=== PATIENT | male | born 1970 | race Caucasian/White ===

== ENCOUNTER → 2024-01-03 14:18 | Outpatient (REF) | payer OTHER, SELFPAY ==
[2024-01-06 04:32] LABS: HPV, High Risk Not Detected; HPV, High Risk Source Anal
== END ==
LOC: CLAB 14:18
PROVIDERS: ATTENDING PHYSICIAN Surgery
DX: Z72.52 High risk homosexual behavior (principal)
CPT/HCPCS: 87624; 88112

== ENCOUNTER → 2024-10-17 08:36 | Outpatient (REF) | payer OTHER, SELFPAY | LOC: RAD 08:36 | PROVIDERS: ATTENDING PHYSICIAN Student in an Organized Health Care Education/Training Program | DX: R05.1 Acute cough (principal) | CPT/HCPCS: 71046 ==

== ENCOUNTER → 2024-12-07 06:35 | Outpatient (REF) | payer OTHER, SELFPAY | LOC: HWRAD 06:35 | PROVIDERS: ATTENDING PHYSICIAN Specialist; FAMILY PHYSICIAN Physician Assistant Medical | DX: R79.89 Other specified abnormal findings of blood chemistry (principal) | CPT/HCPCS: 76700 ==

== ENCOUNTER → 2024-12-13 08:00 | Outpatient (REF) | payer OTHER, SELFPAY | LOC: RCS 08:00 | PROVIDERS: ATTENDING PHYSICIAN Internal Medicine Cardiovascular Disease; FAMILY PHYSICIAN Physician Assistant Medical | DX: R06.02 Shortness of breath (principal) | CPT/HCPCS: 93017; 93350 ==

== ENCOUNTER → 2025-02-28 13:14 | Outpatient (REF) | payer OTHER, SELFPAY | LOC: RAD 13:14 | PROVIDERS: ATTENDING PHYSICIAN Physician Assistant Medical | DX: R10.30 Lower abdominal pain, unspecified (principal) | CPT/HCPCS: 74177; Q9967 ==

== ENCOUNTER 2025-06-03 05:05 | Observation (INO) | payer OTHER, SELFPAY ==
[2025-06-02 23:12] VITALS: BP 126/75
[2025-06-03] VITALS (9 sets, daily range): BP systolic 100–163; BP diastolic 57–87; BMI 28.7; BMI 27.7
[2025-06-03 00:42] LABS: INR 1.03; PT 13.8 Sec (11.4-14.6)
[2025-06-03 00:43] LABS: APTT 32.6 Sec (23.4-35.0)
[2025-06-03 00:48] LABS: Hematocrit 38.2 % (39.0-52.0); Hemoglobin 13.7 g/dL (13.0-18.0); Mean Corp Hgb Conc. 35.9 g/dL (33.0-37.0); Mean Corpuscular Volume 89.9 fL (80.0-94.0); Nucleated Red Blood Cells % 0 % (-); Platelet Count 261 10^3/uL (130-400); Red Cell Dist. Width 12.3 % (11.5-14.5)
[2025-06-03 00:49] LABS: ALT (SGPT) 48 U/L (0-50); AST (SGOT) 32 U/L (17-59); Albumin 5.0 g/dl (3.5-5.0); Alkaline Phosphatase 47 U/L (38-126); Blood Urea Nitrogen 20 mg/dl (9-20); Calcium 9.7 mg/dl (8.4-10.2); Carbon Dioxide 18 mmol/L (22-30); Chloride 111 mmol/L (98-107); Estimated Creatinine Clearance 95 ml/min; Glucose 103 mg/dl (70-99); Potassium 4.5 mmol/L (3.5-5.1); Sodium 144 mmol/L (135-145); Total Protein 7.4 g/dl (6.3-8.2); eGFR > 60.00
[2025-06-03 01:00] LABS: Troponin I < 0.012 ng/ml
--- NOTE | 2025-06-03 01:02 | ED.GENMED ---
History of Present Illness
General
Chief Complaint: CVA/TIA Symptoms
Source: patient
Exam Limitations: none
Time Seen by Provider: 06/03/25 00:35
Nursing documentation reviewed up to this point in time: agreed with
History of Present Illness
History of Present Illness:
Patient is a 54-year-old male with past medical history of hypertension hyperlipidemia, that was brought to the ER by his partner. reports they were sitting on the couch patient fell asleep and woke up with confused speech. could
not understand what patient was saying the patient repeated confused conversation 3 times. His speech was clear but his words were not making sense. Patient presents awake alert he does recall stating something but believes at that time he was
making sense. He does complain of left-sided frontal headache. He denies any other upper lower extremity weakness he denies. He denies any associate chest pain shortness of breath.
He reports yesterday he morning, Wednesday morning he got back from an 18-hour flight from [facility].
Patient reports that patient had a history and diagnosis of aphasia in 2021. He was here in the ER at that time and did see neurology and had negative CAT scan was recommended to start aspirin
Past History
Past History
ED Past Medical History: HTN and Hypercholesterolemia
ED Past Surgical History: Other (knee and sinus)
Patient has exhibited threatening behavior?: No
PSI?: No
Social History
Tobacco: Non-smoker
Alcohol: None
Personal:
Living: with family
Employment: Employed
Phy Exam
General Physical Exam
General Presentation: no apparent distress
General age: appears stated age
General Skin: warm and dry
General Habitus: normal
General Mental: alert
General Hydration: appears well hydrated
ENT Exam
ENT Exam: EOMI
Eye Exam
Eye Exam: PERRL and EOMI
Eye Exam General: PERRL: bilateral and EOM intact: bilateral
Pupil Exam: Bilateral: round and reactive
Cardiovascular Exam
Cardiovascular Exam: regular rate/rhythm, no murmur and normal peripheral pulses
Pulmonary Exam
Pulmonary Exam: lungs clear and no respiratory distress
Neurological Exam
Neurological Exam: alert and oriented x3
NIH Stroke Score
Level of Consciousness: 0 - Alert
LOC questions: 0-Answers both correctly
LOC Commands: 0-Performs both correctly
Best Gaze: 0-Normal
Visual Flowers: 0=Normal, no visual loss
Facial palsy: 0=Normal, symmetrical
Motor - Right Arm: 0=No drift 10 seconds
Motor - Left Arm: 0=No drift 10 seconds
Motor - Right Le-No drift 5 seconds
Motor - Left Le-No drift 5 seconds
Limb Ataxia: 0-Absent
Sensation: 0-Normal
Best Language: 0-No aphasia
Dysarthria: 0-Normal
Extinction and Inattention: 0-No abnormality
Total Score:: 0
Musculoskeletal Exam
Musculoskeletal Exam: full ROM
Skin Exam
Skin Exam: normal color and warm/dry
Psychiatric Exam
Psychiatric Exam: normal mood/affect
Course
Orders/Labs/Results
Orders:
Orders
06/02/25 23:18
Electrocardiogram (*1) Urgent
Reason for Study: Other
Other Reason for Exam: Possible Stroke
EKG- Treatment ONCE
06/03/25 00:00
CT Head W/o Iv Contrast Urgent
Reason For Exam: aphasia previous TIA
06/03/25 00:20
Cardiac Monitoring- Treatment ONCE
IV Insert/Care/Rem.- Treatment PRN
Vital Signs As Directed
Frequency: Other
Weight As Directed
Frequency: Once
Comment: ZERO STRETCHER SCALE FOR ACCURATE WEIGHT
O2 Therapy [RESP] Urgent
Titrate/Wean O2 to maintain O2 sat greater than (%): 93
Special Instructions: MAINTAIN CONTINUOUS O2 SATS > OR = 93%
06/03/25 00:23
Alcohol Urgent
Complete Blood Count/With Diff Urgent
Comprehensive Metabolic Panel Urgent
PTT Urgent
Prothrombin Time Urgent
Troponin I Urgent
06/03/25 04:52
Lactate Level [Lactic Acid] Urgent
06/03/25 04:54
Add On- LAB Urgent
Tests Added?: Alcohol
Admit/Transfer Patient As Directed
Co-Sign Provider:
Level of Care: Observation services
Assign to:: Telemetry
Physician / Group: Carlos
Diagnosis: Aphasia
Reason for Telemetry: CVA/TIA
Date to Stop Telemetry: 06/06/25
Time to Stop Telemetry: 11:00
PRN Pain Medication Management As Directed
May give lesser potent ordered pain med per pt: Yes
preference::
Protocol:: Medication orders for pain may be administered in a
manner that supports deferring to patient preference
when the pt is:
- Requesting an ordered lesser potent pain medication.
Least to most potent pain medications are defined
as: acetaminophen < NSAID < tramadol < opioids
(morphine, oxycodone, hydromorphone).
- Requesting a lesser dose of the same medication IF
ORDERED.
- Requesting a less intrusive route of administration
if both routes are prescribed by the provider (PO <
IV).
06/03/25 04:55
Code Status As Directed
Resuscitation Status: Full Code
06/03/25 Breakfast
Regular
At Your Request: Full Participation
Does patient need a safe tray?: No
06/03/25 06:13
Acetaminophen [Tylenol] 650 mg PO Q4HPRN PRN
06/03/25 07:13
0.9% Sodium Chloride 1000 ml [Nss] 1,000 ml IV 100 mls/hr
FOLic ACID [Folvite] 1 mg 0.9% Sodium Chloride 50 ml [Nss] 50 ml IV DAILYPRN
Lorazepam [Ativan] 1 mg PO Q2HPRN PRN
06/03/25 07:13
Case Management Consult Once
Case Management Consult: Other
Comment: Substance abuse counseling
DIETARY IP CONSULT Routine
Reason for Consult: Nutrition support, possible refeeding guidelines
Activity As Directed
Activity Level: Ambulate
With Assistance
EKG with chest pain [ECG as needed] As Directed
ECG as needed for:: Chest Pain
I/O [Intake/ Output] As Directed
Frequency: Per unit guidelines
MSAS SCORE As Directed
MSAS Score 0-4: Repeat MSAS every 2 hours until 0-4 for three consecutive assessments, then every 4 hours x 48
hours.
MSAS Score 5-7: For MILD withdrawl symptoms. Repeat MSAS and RASS every 2 hours
MSAS Score 8-11: For MODERATE withdrawal symptoms. Repeat MSAS and RASS every 1 hour. Consider ICU or IMU
level of care.
MSAS Score > 11: For SEVERE withdrawal symptoms. Repeat MSAS and RASS every 1 hour. Notify provider, consider
ICU level of care.
MSAS Additional Instructions: If no improvement or no decrease in score from severe to moderate within 12
hours, consult psychiatry
MSAS Notify Provider: Notify provider if patient requires more than 10 mg of Lorazepam in eight hour period.
Neurological Checks As Directed
Frequency: q4h
Pneumatic Compression Sleeves As Directed
Type: Knee high
Vital Signs As Directed
Frequency: Per unit guidelines
Oxygen Therapy [O2 Therapy] [RESP] Routine
Titrate/Wean O2 to maintain O2 sat greater than (%): 94
Speech Therapy Eval & Treat Routine
DX Deep Vein Thrombosis Video Routine
06/03/25 07:21
Lorazepam [Ativan] 1 mg PO Q1HPRN PRN
06/03/25 07:22
diazePAM [Valium Injection] 10 mg IV Q1HPRN PRN
06/03/25 08:00
Aspirin Chewable [Low Strength Aspirin] 81 mg PO DAILY
FOLic ACID [Folvite] 1 mg PO DAILY
Labetalol [Trandate] 50 mg PO BID
Lisinopril [Zestril] 20 mg PO BID
Sertraline HCl [Zoloft] 25 mg PO DAILY
Spironolactone [Aldactone] 12.5 mg PO DAILY
Thiamine Injection 200 mg IV Q12
06/03/25 09:12
Glycohemoglobin (HgbA1c) Routine
TSH Reflex To Free T4 Routine
06/03/25 10:52
Urine Drug Abuse Screen Routine
Date Specimen was Collected: 06/03/25
Time Specimen was Collected: 09:55
06/04/25 06:00
Basic Metabolic Panel IN AM
Cardiovascular Evaluation IN AM
Complete Blood Count/No Diff IN AM
06/06/25 08:00
Thiamine HCl [Vitamin B1] 100 mg PO BID
06/06/25 11:00
DC Protocol for Telemetry ONCE
Abnormal Lab Results
06/03/25
00:23
RBC 4.25 L 10^6/uL
(4.70-6.10)
Hct 38.2 L %
(39.0-52.0)
MCH 32.2 H pg
(27.0-31.0)
Abs Immat Gran (auto) 0.1 H 10^3/uL
(0-0.05)
Immature Gran % 0.8 H %
(0-0.5)
Chloride 111 H mmol/L
(98-107)
Carbon Dioxide 18 L mmol/L
(22-30)
Glucose 103 H mg/dl
(70-99)
06/03/25 00:23
06/03/25 00:23
Vital Signs
Initial and Last Documented VS:
Initial Vital Signs
Temp Pulse Resp BP Pulse Ox
98.3 F 79 16 126/75 96
06/02/25 23:12 06/02/25 23:12 06/02/25 23:12 06/02/25 23:12 06/02/25 23:12
Last Documented Vital Signs
Temp Pulse Resp BP Pulse Ox
97.7 F 82 16 143/81 98
06/03/25 15:00 06/03/25 15:00 06/03/25 15:00 06/03/25 15:00 06/03/25 15:00
Associate Professor Computer Science consulted with Physician
Associate Professor Computer Science consulted with physician?: Yes
Name of Physician Consulted: lazarus
MDM/Problems Addressed
Differential Diagnosis Includes:
Not limited TIA
MDM/Problems Addressed:
As documented patient is a 54-year-old male who was brought by for evaluation. Patient had an episode at 0 of confused conversation. reports his eyes were open he was awake alert talking but not making any sense. His speech was
clear. He presented awake alert and oriented to the ER and recalls this but felt he was making sense at the time. He has no neurological deficits. He does have a history of aphasia, TIA episode in 2021 and was discharged on aspirin but never
followed up with neurology had not not had an MRI.
Case reviewed with ED physician will order CAT scan and plan for admission
Chronic conditions affecting care:
Hypertension hyperlipidemia history of TIA
*Radiology
Radiology exam reviewed: radiology read reviewed
*Pulse Oximetry
SaO2: 96
Oxygen Mode of Delivery: Room air
Patient hypoxic: no
*EKG
Interpreted by ED Provider?: Yes
Heart Rate: 68
Rate: normal
Rhythm: sinus
Ischemia: non-specific ST changes
*Critical Care Note
Total Time (30-74mins, 75-104mins- exclusive of procedures): Not Applicable
ED Attending Note
-
Portions of this chart may have been created with voice recognition software.� Occasional wrong word or��sound alike� substitutions may have occurred due to the inherent limitations of voice recognition software.
Discharge Plan
Departure
Patient Disposition: Admit
Date of Disposition: 06/03/25
Time of Disposition: 03:52
Admit to: Med/Surg
Admit to doctor: hospitalist
Presentation/result/management discussed w/ accepting MD/DO: Hospitalist
Patient with high blood pressure during this ER visit?: No
Condition: Fair
Covid-19: Not Applicable
Discharge Problem:
Possible TIA
Interventions
Interventions:
*Risk Screen - Suicide Last Done: 06/02/25 23:12
*General Assessment Last Done: 06/03/25 00:24
*Neglect/Abuse Screening Last Done: 06/02/25 23:12
*ED- Fall Risk Assessment Last Done: 06/03/25 07:21
*ED COVID-19 Vaccine History Last Done: 06/03/25 00:24
*Nursing Disposition Last Done: 06/03/25 07:21
ED- Cardiac Assessment Last Done: 06/03/25 00:28
ED- Neurological Assessment Last Done: 06/03/25 00:28
ED- Pulmonary Assessment Last Done: 06/03/25 00:28
ED Swallowing Screen Last Done: 06/03/25 01:30
Discharge Date and Time
Discharge Date/Time: 06/03/25 07:22
--- NOTE | 2025-06-03 04:56 | HPS.HSE ---
Family Physician
-
Family Physician: Camryn Barrientos
Chief Complaint
-
Aphasia
History of Present Illness
Patient is a 54y M with PMH significant for hypertension and suspected prior TIA who presents to ED for evaluation of aphasia. Patient states that he was feeling well this evening. He fell asleep early in the evening and then woke around 9:30 -
10 PM. He states that she started to speak with his , but he was apparently making no sense. He was speaking about mushrooms or bugs / beetles or something similar and seemed confused according to his . This lasted for about 5-10
minutes and then improved. Patient then presented to the ED for further evaluation.
He developed a L sided headache after arrival to the ED - this is now somewhat improved.
He denies any vision changes, numbness / tingling, focal weakness or ataxia.
Patient had a similar episode in 2021. He was seen in the ED by Neurology at that time and diagnosed with suspected TIA. He was markedly hypertensive during that visit (is not today).
Medical History
Past Medical History
Past Medical History: Reports Other
Additional Past Medical History:
Hypertension
TIA
IBS
Anxiety
Past Surgical History: Reports Other
Additional Past Surgical History:
T&A
Sinus Surgery
Bilateral Elbow Surgery
Carpal Tunnel
Social History
Tobacco: Non-smoker
Alcohol: Daily (Drinks most days of the week. Averages 6-8 drinks per week.)
Drug: None
Personal:
Family History
Family History: Other (Father: Parkinson's, TIAs Mother: Lung Cancer)
Allergies / Home Medications
Allergies reflects when Allergies were last updated in [employer].
Home Medications with original date entered in [employer]
Allergy/Medication List:
Allergies
Allergy/AdvReac Type Severity Reaction Status Date / Time
Sulfa (Sulfonamide Allergy Hives Verified 06/02/25 23:17
Antibiotics)
Home Medications
aspirin 81 mg tablet 81 mg PO DAILY Blood Clot Prevention/Tx 03/15/23
lisinopril 20 mg tablet 20 mg PO BID Blood Pressure 03/15/23
spironolactone 25 mg tablet (Aldactone) 12.5 mg PO DAILY Fluid Retention/Swelling 03/15/23
evolocumab 140 mg/mL subcutaneous pen injector (Repatha SureClick) 140 mg SC Q2W 06/03/25
labetalol 100 mg tablet 50 mg PO BID 06/03/25
sertraline 25 mg tablet 25 mg PO DAILY 06/03/25
Review of Systems
-
History Source: Patient
A 12 point ROS was completed and negative except as noted: Yes
Constitutional: Denies Fever or Chills
Respiratory: Denies Cough or Trouble Breathing
Cardiac: Denies Chest Pain or Palpitations
Abdomen/GI: Denies Abdominal Pain, Nausea, Vomiting or Diarrhea
: Denies Dysuria or Frequency
Musculoskeletal: Denies Joint Pain or Edema
Neurological: Reports Headache and Other (Speech issues.); Denies Dizzy, Weakness or Numbness
Physical Exam
Vital Signs
Vital Signs
Temp Pulse Resp BP Pulse Ox
98.3 F 77 14 117/72 97
06/02/25 23:12 06/03/25 03:30 06/03/25 03:30 06/03/25 01:00 06/03/25 03:30
Physical Exam
General: Other (54y M in no acute distress.)
HEENT: Moist mucous membranes and PERRLA
Respiratory: Clear; No Wheezes, Rales or Rhonchi
Cardiac: S1/S2 and Regular Rhythm; No Murmur
GI: Soft, Non Tender, Non Distended and Normal Bowel Sounds
Musculoskeletal: No Clubbing, No Cyanosis and No Edema
Neuro: AO x 3 and Nonfocal/grossly intact
Laboratory Results
-
06/03/25 00:23
06/03/25 00:23
Laboratory Results
PT 13.8 Sec (11.4-14.6) 06/03/25:
INR 1.03 06/03/25:
APTT 32.6 Sec (23.4-35.0) 06/03/25:
Total Bilirubin 0.6 mg/dl (0.2-1.3) 06/03/25:
AST 32 U/L (17-59) 06/03/25:
ALT 48 U/L (0-50) 06/03/25:
Alkaline Phosphatase 47 U/L (38-126) 06/03/25:
Troponin I < 0.012 ng/ml 06/03/25:
Impression/Plan
-
A/P: Patient is a 54y M with PMH significant for hypertension and prior TIA who presents to ED for evaluation of transient speech abnormality.
Aphasia
- Observe overnight for further evaluation.
- CT head unremarkable in the ED. Not hypertensive (BP running low which is unusual for him).
- Follow for new / recurrent symptoms.
- MRI in AM.
- Continue ASA daily.
Anion Gap Metabolic Acidosis
- Mild elevation in AG (15). Odor of ketones in the room.
- Check serum ketones, EtOH.
- IVFs and follow labs for changes.
Hypertension
- BP not elevated at present.
- Continue usual medications with holding parameters.
Alcohol Use Disorder
- Patient reports alcohol intake most days but not every day.
- Monitor MSAS and treat with BZDs if needed for any withdrawal symptoms.
DVT Prophylaxis: SCDs
Code Status: Full
[2025-06-03] MEDS: TYLENOL 650 MG PO (06:22)
[2025-06-03] MEDS: NSS 1000 IV (08:38)
[2025-06-03] MEDS: THIAMINE INJECTION 200 MG IV ×2 (08:44→20:32)
[2025-06-03] MEDS: FOLVITE 1 MG PO (08:46)
[2025-06-03] MEDS: TRANDATE 50 MG PO ×2 (08:46→20:33)
[2025-06-03] MEDS: LOW STRENGTH ASPIRIN 81 MG PO (08:46)
[2025-06-03] MEDS: ZOLOFT 25 MG PO (08:46)
[2025-06-03] MEDS: ALDACTONE 12.5 MG PO (08:46)
[2025-06-03] MEDS: ZESTRIL 20 MG PO ×2 (08:46→20:31)
[2025-06-03 13:22] LABS: Glycohemoglobin (HgbA1c) 5.4 % (4.0-5.6)
--- NOTE | 2025-06-03 13:32 | CM ---
Initial assessment completed with patient with in room. Patient lives with his in a 1 story plus basement home with 2 steps to enter. [employer] patient was independent in ADL's and ambulation, drives. No DME or in-home services. Patient
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 No VA benefits. No psychiatric hospitalizations. PA is Camryn Barrientos with [facility]. Pharmacy is [facility], [facility], . Discharge POC: Anticipate home with no needs, Obs form
completed.
--- NOTE | 2025-06-03 15:14 | W.PN.HOSP.TC ---
Today's Communication/Plan
-
Neurology evaluation
Repeat BMP
Possible discharge today
Assessment / Plan
Assessment / Plan
54-year-old man with aphasia/dysphagia
Head CT-CT evidence-no acute intracranial hemorrhage. Low-lying cerebellar tonsils.
MRI-no evidence of acute infarct or intracranial hemorrhage. Low-lying cerebellar tonsils. Severe right maxillary sinusitis.
EKG-sinus rhythm. Nonspecific ST-T changes
Patient is awake and alert oriented
Cardiovascular system S1-S2 appreciated
Chest clear to auscultation
Abdomen soft nontender
Neuroexam is nonfocal
No tenderness in the sinuses
# Aphasia/dysphagia
Patient had alcohol from 4 PM to 8 PM and then this symptoms happened at around 10 PM.
MRI negative for strokes
Symptoms are unlikely secondary to CVA but secondary to alcohol intoxication
Alcohol level was 192 4 hours after his last reported drink
Continue aspirin which he was on prior to coming in
Neurology evaluation requested per patient/ family request
# Severe sinusitis seen on imaging-patient does not have any clinical symptoms therefore no treatment. Advised patient to report to his PCP if he does develop any symptoms and the near future. He does not have any symptoms of bacterial sinusitis
at this point therefore no antibiotics.
# Anion gap metabolic acidosis likely secondary to alcohol, repeat
# Hypertension-continue labetalol, lisinopril, Aldactone
# Hyperlipidemia-on Repatha
# Alcohol use disorder-at least 4 days a week
Patient needs to cut back on alcohol was discussed with him
Continue MSAS, with benzo for withdrawal symptoms and thiamine
# Diverticulosis
# Fatty liver
# DVT prophylaxis-SCDs
# Full code
Discussed with patient's at bedside
D/W RN
Discussed with patient regarding cutting back on alcohol. I also reviewed that he was here with gastritis in the past and could have been also secondary to alcohol use. I do not think patient realizes the depth of his situation and the amount of
alcohol he he uses.
Part of this note was created using voice recognition system. Occasional wrong word or��sound alike� substitutions may have inadvertently occurred due to the inherent limitations of voice recognition software. If noted kindly bring it to my
attention for correction.
Anticipated Discharge: Today
Subjective/Interval History
-
Date of Service: June 03, 2025
Objective Data
-
Labs:
Laboratory Results
06/03/25
14:56
Sodium Pending
Potassium Pending
Chloride Pending
Carbon Dioxide Pending
BUN Pending
Creatinine Pending
Glucose Pending
Calcium Pending
Vital Signs:
Vital Signs
Temp Pulse Resp BP Pulse Ox
98.6 F 80 12 132/73 94
06/03/25 11:00 06/03/25 11:00 06/03/25 11:00 06/03/25 11:00 06/03/25 11:00
[2025-06-03 15:27] LABS: Blood Urea Nitrogen 19 mg/dl (9-20); Calcium 9.8 mg/dl (8.4-10.2); Carbon Dioxide 25 mmol/L (22-30); Chloride 107 mmol/L (98-107); Estimated Creatinine Clearance 107 ml/min; Glucose 116 mg/dl (70-99); Potassium 4.5 mmol/L (3.5-5.1); Sodium 138 mmol/L (135-145); eGFR > 60.00
[2025-06-03 16:17] LABS: Blood Urea Nitrogen 18 mg/dl (9-20); Calcium 9.8 mg/dl (8.4-10.2); Carbon Dioxide 24 mmol/L (22-30); Chloride 107 mmol/L (98-107); Estimated Creatinine Clearance 107 ml/min; Glucose 99 mg/dl (70-99); Potassium 4.4 mmol/L (3.5-5.1); Sodium 139 mmol/L (135-145); eGFR > 60.00
[2025-06-03] MEDS: PLAVIX 300 MG PO (16:20)
[2025-06-03] MEDS: PROTONIX 40 MG PO (16:21)
--- NOTE | 2025-06-03 16:49 | CON.NEURO ---
Neuro Assessment/Plan
Assessment
MRI brain imgs rev'd, normal, no stroke
ETOH 192
54 yr old man with transient aphasia, exam consistent with brainstem stroke/TIA, and as there is no language involvement with brainstem, I suspect his transient aphasia to be embolic TIA, with alcohol putting him at risk for going into afib.
continue ASA 81, I Loaded Plavix 300 + 21 days of Plavix,
I ordered ECHO and carotid ultrasound
He is on repatha for Lipids managed by Dr Roy, whom I'm consulting for embolic workup as patient agreeable to VENANCIO
discussed with patient and all questions answered.
Consultation
Order
Date of Consultation: 06/03/25
Requesting Provider: Santo
Reason for Consult: aphasia
Subjective/Objective
Subjective Data
Date of Service: June 03, 2025
Patient is a 54y M with PMH significant for hypertension and suspected prior TIA who presents to ED for evaluation of aphasia. Patient states that he was feeling well this evening. He fell asleep early in the evening and then woke around 9:30 -
10 PM. He states that she started to speak with his , but he was apparently making no sense. He was speaking about mushrooms or bugs / beetles or something similar and seemed confused according to his . This lasted for about 5-10
minutes and then improved. Patient then presented to the ED for further evaluation.
He developed a L sided headache after arrival to the ED - this is now somewhat improved.
He denies any vision changes, numbness / tingling, focal weakness or ataxia.
Patient had a similar episode in 2021. He was seen in the ED by Neurology at that time and diagnosed with suspected TIA. He was markedly hypertensive during that visit (is not today).
patient has vague recollection of events, and not sure what he was trying to say. in ED ETOH 192. patient admits to drinking 1-2 nights a week.
Objective Data
Vital Signs
Temp Pulse Resp BP Pulse Ox
36.5 C 82 16 143/81 98
06/03/25 15:00 06/03/25 15:00 06/03/25 15:00 06/03/25 15:00 06/03/25 15:00
Lab Results
06/03/25 00:23
06/03/25 15:53
PT 13.8 Sec (11.4-14.6) 06/03/25 00:23
INR 1.03 06/03/25 00:23
APTT 32.6 Sec (23.4-35.0) 06/03/25 00:23
Sodium 139 mmol/L (135-145) 06/03/25 15:53
Potassium 4.4 mmol/L (3.5-5.1) 06/03/25 15:53
BUN 18 mg/dl (9-20) 06/03/25 15:53
Glucose 99 mg/dl (70-99) 06/03/25 15:53
Calcium 9.8 mg/dl (8.4-10.2) 06/03/25 15:53
Ur Buprenorphine Negative (Negative) 06/03/25 10:52
Patient Allergies
Sulfa (Sulfonamide Antibiotics) Allergy (Verified 06/02/25 23:17)
Hives
Physical Exam
-
AAOx3, speech clear, language intact
VFF, EOMI, Right nasolabial flattening
LUE/LE 5-/5, RUE/LE full strength, left pronator drift
sensation intact to touch/pin, with mild left sided vibratory loss.
Finger to nose was normal
Medications
-
Active Medications
Generic Name Dose Route Start Last Admin
Trade Name Freq PRN Reason Stop Dose Admin
Acetaminophen 650 mg 06/03/25 06:13 06/03/25 06:22
Acetaminophen 325 Mg Tablet PO 07/01/25 06:12 650 mg
Q4HPRN PRN Administration
Mild Pain / Temp > 101
Aspirin 81 mg 06/03/25 08:00 06/03/25 08:46
Aspirin 81 Mg Chewable Tablet PO 07/01/25 07:59 81 mg
DAILY YANIV Administration
Clopidogrel Bisulfate 75 mg 06/04/25 08:00
Clopidogrel 75 Mg Tablet PO 06/24/25 08:01
DAILY YANIV
Diazepam 10 mg 06/03/25 07:22
Diazepam 10 Mg/2 Ml Inj IV 07/01/25 07:21
Q1HPRN PRN
MSAS > 11
Folic Acid 1 mg 06/03/25 08:00 06/03/25 08:46
Folic Acid 1 Mg Tablet PO 07/01/25 07:59 1 mg
DAILY YANIV Administration
Folic Acid 1 mg/ Sodium 50.2 mls @ 200.8 mls/hr 06/03/25 07:13
Chloride IV 07/01/25 07:12
DAILYPRN PRN
if NPO
Labetalol HCl 50 mg 06/03/25 08:00 06/03/25 08:46
Labetalol 100 Mg Tablet PO 07/01/25 07:59 50 mg
BID YANIV Administration
Lisinopril 20 mg 06/03/25 08:00 06/03/25 08:46
Lisinopril 20 Mg Tablet PO 07/01/25 07:59 20 mg
BID YANIV Administration
Lorazepam 1 mg 06/03/25 07:13
Lorazepam 1 Mg Tablet PO 07/01/25 07:12
Q2HPRN PRN
MSAS 5-7
Lorazepam 1 mg 06/03/25 07:21
Lorazepam 1 Mg Tablet PO 07/01/25 07:20
Q1HPRN PRN
MSAS 8-11
Pantoprazole Sodium 40 mg 06/04/25 08:00
Pantoprazole 40 Mg Delayed Release Tablet PO 07/02/25 07:59
DAILY YANIV
Sertraline HCl 25 mg 06/03/25 08:00 06/03/25 08:46
Sertraline 25 Mg Tablet PO 07/01/25 07:59 25 mg
DAILY YANIV Administration
Sodium Chloride 0 flush 06/03/25 08:00
Sodium Chloride 0.9% (Flush) Syringe IV 07/01/25 07:59
PER PROTOCOL YANIV
Spironolactone 12.5 mg 06/03/25 08:00 06/03/25 08:46
Spironolactone 25 Mg Tablet PO 07/01/25 07:59 12.5 mg
DAILY YANIV Administration
Thiamine HCl 200 mg 06/03/25 08:00 06/03/25 08:44
Thiamine (100 Mg/Ml) 2 Ml Vial IV 06/05/25 20:01 200 mg
Q12 YANIV Administration
Thiamine HCl 100 mg 06/06/25 08:00
Thiamine 100 Mg Tablet PO 07/04/25 07:59
BID YANIV
Home Medications
�Medication �Instructions �Recorded
aspirin 81 mg tablet 81 mg PO DAILY Blood Clot 03/15/23
Prevention/Tx
lisinopril 20 mg tablet 20 mg PO BID Blood Pressure 03/15/23
spironolactone 25 mg tablet 12.5 mg PO DAILY Fluid 03/15/23
(Aldactone) Retention/Swelling
evolocumab 140 mg/mL subcutaneous 140 mg SC Q2W High Cholesterol 06/03/25
pen injector (Repatha SureClick)
labetalol 100 mg tablet 50 mg PO BID Blood Pressure 06/03/25
sertraline 25 mg tablet 25 mg PO DAILY Depression 06/03/25
thiamine mononitrate (vit B1) 100 100 mg PO DAILY #30 tabs 06/03/25
mg tablet
[2025-06-03 21:39] LABS: Blood Urea Nitrogen 17 mg/dl (9-20); Calcium 9.8 mg/dl (8.4-10.2); Carbon Dioxide 24 mmol/L (22-30); Chloride 107 mmol/L (98-107); Estimated Creatinine Clearance 122 ml/min; Glucose 132 mg/dl (70-99); Potassium 3.9 mmol/L (3.5-5.1); Sodium 137 mmol/L (135-145); eGFR > 60.00
[2025-06-03 21:40] LABS: Magnesium 1.9 mg/dl (1.6-2.3)
--- NOTE | 2025-06-04 03:41 | PTCARENOTE ---
Pt reported c/o 'numbness' to L 4th and 5th fingers. Denied pain. NIH assessment of 1 due to the decreased sensation. TT to covering [employer] seen. Blood work drawn as ordered. No change to plan of care reported. No s/s of distress reported. Will continue
to monitor.
[2025-06-04 03:59] VITALS: BP 119/78
[2025-06-04 07:32] LABS: Hematocrit 39.4 % (39.0-52.0); Hemoglobin 13.8 g/dL (13.0-18.0); Mean Corp Hgb Conc. 35.0 g/dL (33.0-37.0); Mean Corpuscular Volume 90.4 fL (80.0-94.0); Platelet Count 247 10^3/uL (130-400); Red Cell Dist. Width 12.4 % (11.5-14.5)
[2025-06-04 07:35] VITALS: BP 126/76
[2025-06-04 08:05] LABS: Blood Urea Nitrogen 14 mg/dl (9-20); Calcium 9.5 mg/dl (8.4-10.2); Carbon Dioxide 27 mmol/L (22-30); Chloride 106 mmol/L (98-107); Estimated Creatinine Clearance 95 ml/min; Glucose 93 mg/dl (70-99); HDL Cholesterol 65 mg/dl; LDL Cholesterol, Calculated 44 mg/dl; Potassium 4.4 mmol/L (3.5-5.1); Sodium 141 mmol/L (135-145); Very Low Density Lipoprotein 37 mg/dl (0-30); eGFR > 60.00
[2025-06-04] MEDS: ALDACTONE 12.5 MG PO (08:50)
[2025-06-04] MEDS: PLAVIX 75 MG PO (08:52)
[2025-06-04] MEDS: LOW STRENGTH ASPIRIN 81 MG PO (08:52)
[2025-06-04] MEDS: FOLVITE 1 MG PO (08:52)
[2025-06-04] MEDS: ZESTRIL 20 MG PO ×2 (08:52→20:53)
[2025-06-04] MEDS: ZOLOFT 25 MG PO (08:53)
[2025-06-04] MEDS: PROTONIX 40 MG PO (08:53)
[2025-06-04] MEDS: TRANDATE 50 MG PO ×2 (08:53→20:52)
[2025-06-04] MEDS: THIAMINE INJECTION 200 MG IV ×2 (08:54→20:53)
[2025-06-04] MEDS: MILK OF MAGNESIA 30 ML PO (09:53)
[2025-06-04] MEDS: AUGMENTIN 875 MG/125 MG 1 TABLET PO ×2 (09:53→20:51)
[2025-06-04] MEDS: SENOKOT 17.2 MG PO ×2 (09:54→20:51)
[2025-06-04] MEDS: ZYRTEC 10 MG PO (09:54)
--- NOTE | 2025-06-04 10:31 | W.PN.HOSP.TC ---
Today's Communication/Plan
-
Working up etiology of possible stroke with carotid ultrasound and VENANCIO per neurology. Pending carotid ultrasound read. VENANCIO scheduled for tomorrow 06/05/2025. N.p.o. at midnight.
Will receive an implanted Linq monitor per cardiology.
Assessment / Plan
Assessment / Plan
54-year-old man with a PMH notable for HTN and suspected to prior TIA, who presented with aphasia/dysphagia for few minutes after drinking alcohol.
Head CT-CT evidence-no acute intracranial hemorrhage. Low-lying cerebellar tonsils.
MRI-no evidence of acute infarct or intracranial hemorrhage. Low-lying cerebellar tonsils. Severe right maxillary sinusitis.
Transesophageal echo scheduled for tomorrow. N.p.o. at midnight.
Will receive an implanted Linq monitor per cardiology.
# Aphasia/dysphagia
Patient had alcohol from 4 PM to 8 PM and then this symptoms happened at around 10 PM.
MRI negative for strokes
Symptoms are unlikely secondary to CVA. More likely secondary to alcohol intoxication
Alcohol level was 192 4 hours after his last reported drink
Continue aspirin which he was on prior to coming in
TTE: Normal LV size and function. LVEF 56% by visual estimate. Mild LVH. Normal diastolic function.
Carotid ultrasound and VENANCIO per neurology. Pending carotid ultrasound read. VENANCIO scheduled for tomorrow 06/05/2025
# Severe sinusitis seen on imaging-patient does not have any clinical symptoms therefore no treatment. Advised patient to report to his PCP if he does develop any symptoms and the near future. He does not have any symptoms of bacterial sinusitis
at this point therefore no antibiotics.
# Anion gap metabolic acidosis likely secondary to alcohol, repeat
# Hypertension-continue labetalol, lisinopril, Aldactone
# Hyperlipidemia-on Repatha
# Alcohol use disorder-at least 4 days a week
Patient needs to cut back on alcohol was discussed with him
Continue MSAS, with benzo for withdrawal symptoms and thiamine
# Diverticulosis
# Fatty liver
# DVT prophylaxis-SCDs
# Full code
Discussed with patient's at bedside
D/W RN
Discussed with patient regarding cutting back on alcohol. I also reviewed that he was here with gastritis in the past and could have been also secondary to alcohol use. I do not think patient realizes the depth of his situation and the amount of
alcohol he he uses.
Part of this note was created using voice recognition system. Occasional wrong word or��sound alike� substitutions may have inadvertently occurred due to the inherent limitations of voice recognition software. If noted kindly bring it to my
attention for correction.
Anticipated Discharge: Within 24 hours
Subjective/Interval History
-
Date of Service: June 04, 2025
Right 4th and 5th digit numbness overnight that resolved. CMP was ordered, which was normal.
In no acute distress. Reports postnasal drip. Will give amoxicillin and cetirizine
Objective Data
-
Labs:
Laboratory Results
06/04/25
06:12
WBC 7.8
Hgb 13.8
Hct 39.4
Plt Count 247
Sodium 141
Potassium 4.4
Chloride 106
Carbon Dioxide 27
BUN 14
Creatinine 0.9
Glucose 93
Calcium 9.5
Vital Signs:
Vital Signs
Temp Pulse Resp BP Pulse Ox
98.4 F 81 16 148/84 100
06/04/25 07:35 06/04/25 08:50 06/04/25 07:35 06/04/25 08:50 06/04/25 09:00
I&O
06/03/25 06/04/25 06/05/25
06:59 06:59 06:59
Intake Total 780 / 780
Output Total 200 / 200
Balance 580 / 580
Review of Systems
-
History Source: Patient
Constitutional: Reports No Symptoms
EENT: Reports No Symptoms Reported
Respiratory: Reports No Symptoms
Cardiac: Reports No Symptoms
Abdomen/GI: Reports No Symptoms
Neuro: Reports No Symptoms
Physical Exam
-
General: Well Developed, Well Nourished, No Apparent Distress and Comfortable
HEENT: Normocephalic, Atraumatic and Moist Mucous Membranes
Respiratory: Clear to Auscultation
Cardiac: Regular Rhythm and S1/S2
GI: Soft, Nontender, Nondistended and Normal Bowel Sounds
Neuro: Awake, Alert and Oriented
--- NOTE | 2025-06-04 11:11 | CON.CAR ---
Addendum entered and electronically signed by Leta Murillo MD 06/04/25 12:39:
I personally performed a cardiology consultation and physical exam of the patient and discussed management with the resident. I reviewed the resident's note and agree with the documented findings and plan of care HPI/CC.
I personally with the resident at the bedside performed a history and physical on the patient. Myself, the resident and the patient discussed history and management decisions. We discussed the patient's recurrent TIA and pending carotid ultrasound
further cardiac testing.
Exam: Well-appearing. Normal rate and rhythm. No murmurs noted. Lungs clear. Extremities without edema.
Possible recurrent TIA. Appreciate neurology consult.
Await carotid ultrasound if negative proceed with further cardiac assessment
This would include an implantable Linq monitor and transesophageal echocardiogram. Risks and benefits of testing/monitoring discussed with patient and he is agreeable to proceed.
Lipids are at goal. Continue current treatment
Blood pressure stable. Continue current treatment.
Labs and telemetry independently reviewed by me and stable.
Original Note:
Consultation
Consultation Request
Date/Time Consultation Requested: 06/03/25 15:59
Date/Time Consultation Performed: 06/04/25 09:30
Requesting Provider: Rosales Vazquez MD
Performing Provider: Yony Mon DO (Resident); Leta Murillo MD
Reason for Consultation: Recurrent TIA
Medical History
-
Chief Complaint: Aphasia
History of Present Illness:
Tyler Easley is a 54M with a PMhx of HTN, HLD, EtOH use disorder, distant hx of panic attacks, family history of CVA/TIA and previous TIA in 2021 with a negative work up who presented to the emergency department with aphasia.
The patient endorses that 2 nights ago, he was spending the night with his partner listening to music and drinking. He was well and in his usual state of health and fell asleep on the couch. He does not know how long he was asleep for, but when he
woke up from the nap, he reports that his felt that he was not making sense. Symptoms of aphasia were described as being able to use normal words, but content and syntax were off. Patient endorses the episode lasted approximately 10 minutes
and he came to the ED immediately after.
Patient endorses one perior episode in 2021 which prompted an ED visit as well, but imaging was negative. Patient presented at that time with elevated BP and was discharged on ASA and Labetalol.
Patient also endorses having recently been on an 18 hour direct flight from [facility] 3 days ago, but notes sitting in business class with a lot of room, and getting up to walk around during the flight.
States that he is unsure of history of palpitations and would occasionally experience short moments of funny heart beats since his 20s, but they would abort quickly, and he was never worked up for it in the past as it was not a concern. Other chavez
denies any chest pains, shortness of breath, dyspnea on exertion or dizziness/pre-syncope. Denies a history of dysphagia, odynophagia, hematemesis, hemoptysis, esophageal masses or lesions, or severe reflux.
Prior Studies
ECG 12/05: NSR
TTE 2021: mild MR, otherwise unrmarkable
24 hour Holter: per patient, record not found, date unknown, negative.
Stress Echo 11/30/2024: 17 mets without ischemia
ED COURSE
EKG NSR, EtOH 0.19, AGMA (resolved)
CT Head w/o IV: no acute, subacute, or chronic transcortical infarct, no atherosclerotic plaque in the intracranial internal carotids or vertebral arteries.
Hospital Course
Brain MRI: no acute, subacute, or chronic transcortical infarct, no vasogenic edema, low lying cerebellar tonsils.
No repeat events.
Transthoracic ECHO: mild LVH, no change from 2021, EF 56%, otherwise unremarkable.
US cerebrovascular pending.
Past Medical History
Past Medical History: HTN, Hypercholesterolemia and Other (distant hx of panic attacks, EtOH use, one episode of TIA in 2021)
Past Surgical History: Other (sinus surgery, bilateral elbow, carpal tunnel)
Social History
Tobacco: Non-Smoker
Alcohol: Daily (drinks most days of week, 8-10 drinks per week. )
Drug: None
Personal:
Living: With Family
Family History
Family History: Other (Father: hx of Parkinson's dz, TIA, CVA in 50s. )
Allergies / Home Medications
Allergy/AdvReac Type Severity Reaction Status Date / Time
Sulfa (Sulfonamide Allergy Hives Verified 06/02/25 23:17
Antibiotics)
�Medication �Instructions �Recorded �Confirmed �Type
aspirin 81 mg tablet 81 mg PO DAILY Blood Clot 03/15/23 06/03/25 History
Prevention/Tx
lisinopril 20 mg tablet 20 mg PO BID Blood Pressure 03/15/23 06/03/25 History
spironolactone 25 mg tablet 12.5 mg PO DAILY Fluid 03/15/23 06/03/25 History
(Aldactone) Retention/Swelling
evolocumab 140 mg/mL subcutaneous 140 mg SC Q2W High Cholesterol 06/03/25 06/03/25 History
pen injector (Repatha SureClick)
labetalol 100 mg tablet 50 mg PO BID Blood Pressure 06/03/25 06/03/25 History
sertraline 25 mg tablet 25 mg PO DAILY Depression 06/03/25 06/03/25 History
thiamine mononitrate (vit B1) 100 100 mg PO DAILY #30 tabs 06/03/25 Rx
mg tablet
Review of Systems
-
History Source: Patient
All other systems: Negative unless noted
Physical Exam
Vital Signs
Temp Pulse Resp BP Pulse Ox
98.4 F 81 16 148/84 100
06/04/25 07:35 06/04/25 08:50 06/04/25 07:35 06/04/25 08:50 06/04/25 09:00
Lab Results
06/04/25 06:12
06/04/25 06:12
Troponin I < 0.012 ng/ml 06/03/25 00:23
Physical Exam
General: Well Developed, Well Nourished, No Apparent Distress and Comfortable
HEENT: Normocephalic and Atraumatic
Respiratory: Clear and Non Labored Respirations; Negative Wheezes, Crackles or Rhonchi
Cardiac: S1/S2, Regular Rhythm and Other (no carotid bruits bilaterally, no abdominal bruits); Negative Murmur, Rub, Peripheral Edema or Calf Tenderness
Skin: Warm
Neuro: Awake and Alert
Psych: Calm
Impression / Plan
-
Tyler Easley is a 54M with a PMhx of HTN, HLD, EtOH use disorder, distant hx of panic attacks, family history of CVA/TIA and previous TIA in 2021 with a negative work up who presented to the emergency department with aphasia. Radiographic stroke
workup has thus far been negative for acute or chronic cerebrovascular ischemia but in the setting of this being a second episode in 3 years, evaluation for an embolic source would be prudent. We will continue to follow. Benefits of transesophageal
echo with bubble study and LINQ device was discussed with the patient and he is in agreement.
Plan
- Follow up US Cerebrovascular results
- VENANCIO with agitated saline study in AM
- LINQ device implantation likely tomorrow as well
- Continue to discuss cutting down on EtOH
- No record of HbA1c, order today
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
Data Reviewed
-
EKG: Tracing Personally Visualized and interpreted and Discussed with Patient
CT Scan: Report Reviewed by me and Discussed with Patient
MRI: Report Reviewed by me and Discussed with Patient
Medical Tests (Nuc Med, Echo etc): Image Personally Visualized and interpreted and Discussed with Patient
Labs: Labs Reviewed by me and Discussed with Patient
Old Records: Reviewed
Total Time Spent with Patient (in minutes): 40
[2025-06-04 11:40] VITALS: BP 128/78
--- NOTE | 2025-06-04 15:05 | W.PN.UPDATE ---
Update Note
Progress Note Update
54-year-old man with aphasia/dysphagia
Head CT-CT evidence-no acute intracranial hemorrhage. Low-lying cerebellar tonsils.
MRI-no evidence of acute infarct or intracranial hemorrhage. Low-lying cerebellar tonsils. Severe right maxillary sinusitis.
EKG-sinus rhythm. Nonspecific ST-T changes
Patient is awake and alert oriented
Cardiovascular system S1-S2 appreciated
Chest clear to auscultation
Abdomen soft nontender
I could not elicit a facial droop, normal motor exam, sensory exam
No tenderness in the sinuses
# Aphasia/dysphagia
Patient had alcohol from 4 PM to 8 PM and then this symptoms happened at around 10 PM.
MRI negative for strokes
Neurology evaluation noted. Feels that this could have been a stroke which is not seen on MRI, he is at increased risk given alcohol use.
Alcohol level was 192 ,4 hours after his last reported drink
Continue aspirin which he was on prior to coming in. Plavix added
Telemetry without any arrhythmias
For VENANCIO and also loop monitor tomorrow
# Severe sinusitis seen on imaging-patient does not have any clinical symptoms therefore no treatment. Advised patient to report to his PCP if he does develop any symptoms and the near future.
Patient reported symptoms of sinusitis this morning including pain and discharge therefore started on antibiotics.
# Anion gap metabolic acidosis likely secondary to alcohol, repeat better
# Hypertension-continue labetalol, lisinopril, Aldactone
# Hyperlipidemia-on Repatha
# Alcohol use disorder-at least 4 days a week
Patient needs to cut back on alcohol was discussed with him
Continue MSAS, with benzo for withdrawal symptoms and thiamine
# Diverticulosis
# Fatty liver
# DVT prophylaxis-SCDs
# Full code
D/W RN
Part of this note was created using voice recognition system. Occasional wrong word or��sound alike� substitutions may have inadvertently occurred due to the inherent limitations of voice recognition software. If noted kindly bring it to my
attention for correction.
[2025-06-04 15:52] VITALS: BP 124/76
--- NOTE | 2025-06-04 16:35 | CM ---
Cardiology involved
Pt remains observation.
Offered VN he declined need.
His Rory will drive him home at discharge
PLAN Home no needs
[2025-06-04 19:41] VITALS: BP 113/73
[2025-06-04 23:50] VITALS: BP 114/61
[2025-06-05 03:49] VITALS: BP 116/54
[2025-06-05 07:00] VITALS: BP 133/76
[2025-06-05 07:53] LABS: Hematocrit 40.2 % (39.0-52.0); Hemoglobin 14.0 g/dL (13.0-18.0); Mean Corp Hgb Conc. 34.8 g/dL (33.0-37.0); Mean Corpuscular Volume 91.0 fL (80.0-94.0); Platelet Count 232 10^3/uL (130-400); Red Cell Dist. Width 12.6 % (11.5-14.5)
[2025-06-05] MEDS: ZESTRIL 20 MG PO (08:17)
[2025-06-05] MEDS: ZYRTEC 10 MG PO (08:18)
[2025-06-05] MEDS: SENOKOT 17.2 MG PO (08:18)
[2025-06-05] MEDS: TRANDATE 50 MG PO (08:18)
[2025-06-05] MEDS: LOW STRENGTH ASPIRIN 81 MG PO (08:18)
[2025-06-05] MEDS: PLAVIX 75 MG PO (08:18)
[2025-06-05] MEDS: ALDACTONE 12.5 MG PO (08:18)
[2025-06-05] MEDS: FOLVITE 1 MG PO (08:18)
[2025-06-05] MEDS: PROTONIX 40 MG PO (08:18)
[2025-06-05] MEDS: THIAMINE INJECTION 200 MG IV (08:19)
[2025-06-05] MEDS: ZOLOFT 25 MG PO (08:19)
[2025-06-05] MEDS: AUGMENTIN 875 MG/125 MG 1 TABLET PO (08:19)
[2025-06-05 08:20] LABS: ALT (SGPT) 40 U/L (0-50); AST (SGOT) 25 U/L (17-59); Albumin 4.7 g/dl (3.5-5.0); Alkaline Phosphatase 49 U/L (38-126); Blood Urea Nitrogen 13 mg/dl (9-20); Calcium 9.3 mg/dl (8.4-10.2); Carbon Dioxide 28 mmol/L (22-30); Chloride 106 mmol/L (98-107); Estimated Creatinine Clearance 95 ml/min; Glucose 101 mg/dl (70-99); Potassium 4.7 mmol/L (3.5-5.1); Sodium 141 mmol/L (135-145); Total Protein 6.9 g/dl (6.3-8.2); eGFR > 60.00
[2025-06-05 11:00] VITALS: BP 125/78
--- NOTE | 2025-06-05 13:58 | W.PN.CARDCBS ---
Addendum entered and electronically signed by Jimbo Roy MD 06/05/25 14:31:
I saw and examined the patient.
The Bolt Machine Operator's note was reviewed and I agree with the note.
Comment:
GEN: No distress, awake, Ox3
HEENT: supple, anicteric, mmm
LUNGS: CTA, no wheezes/rales
CV: Reg, S1/S2, 1/6 syst LSB, no gallop
ABD: soft, BS+, NT/ND
EXT: No edema
NEURO: Gross non-focal
SKIN: No rash
PLan:
VENANCIO with no cardiac source of emboli. Normal EF with no left atrial appendage thrombus or PFO.
Linq placed.
Okay for discharge from cardiology standpoint.
Continue aggressive risk factor modification.
I spoke with his at length. I strongly advised the pt to stop drinking alcohol.
Original Note:
Today's Communication / Plan
-
No evidence of intracardiac thrombus on VENANCIO
Linq monitor implanted
Stable for discharge home and will follow-up with cardiology as an outpatient
Impression / Plan
-
PCP: Camryn Barrientos
Card: Dr. Roy
Impression:
Admitted with possible TIA 06/03/2025
Possible brainstem TIA/CVA
EtOH use disorder
HTN
Hyperlipidemia
h/o myositis with statin use
Echo 06/04/2025: EF 56% with mild LVH, no MR
VENANCIO 06/05/2025: No evidence of intracardiac thrombus, final report pending
Plan:
-Patient came to the ER with aphasia in the setting of heavy alcohol use, but some concern for brainstem stroke and was admitted. Cardiology consulted for embolic workup.
-No evidence of cardioembolic source on VENANCIO 06/05/2025
-No evidence of atrial arrhythmia on telemetry thus far. Patient had Linq monitor implanted 06/05/2025
-Patient cannot take statin due to history of myositis with statin use, LDL 44 with his outpatient dose of Repatha 140 mg every 2 weeks
-Reviewed with patient's by phone 06/05/2025
-Patient stable for discharge to home with outpatient follow-up arranged
HPI: Tyler Easley is a 54M with a PMhx of HTN, HLD, EtOH use disorder, distant hx of panic attacks, family history of CVA/TIA and previous TIA in 2021 with a negative work up who presented to the emergency department with aphasia. Radiographic
stroke workup has thus far been negative for acute or chronic cerebrovascular ischemia but in the setting of this being a second episode in 3 years, evaluation for an embolic source would be prudent. We will continue to follow. Benefits of
transesophageal echo with bubble study and LINQ device was discussed with the patient and he is in agreement.
Progress Note - Fitness Sales Consultant
Subjective
Date of Service: June 05, 2025
Feels well, no recurrence of aphasia
Objective
Labs:
06/05/25 06:09
06/05/25 06:09
Labs
Hgb 14.0 g/dL (13.0-18.0) 06/05/25 06:09
Hct 40.2 % (39.0-52.0) 06/05/25 06:09
Plt Count 232 10^3/uL (130-400) 06/05/25 06:09
PT 13.8 Sec (11.4-14.6) 06/03/25 00:23
INR 1.03 06/03/25 00:23
APTT 32.6 Sec (23.4-35.0) 06/03/25 00:23
Sodium 141 mmol/L (135-145) 06/05/25 06:09
Potassium 4.7 mmol/L (3.5-5.1) 06/05/25 06:09
BUN 13 mg/dl (9-20) 06/05/25 06:09
Creatinine 0.9 mg/dL (0.7-1.3) 06/05/25 06:09
Glucose 101 mg/dl (70-99) H 06/05/25 06:09
Troponins
06/03/25
00:23
Troponin I < 0.012
Vital Signs and I&O:
Vital Signs
Temp Pulse Resp BP Pulse Ox
98.6 F 72 12 125/78 99
06/05/25 11:00 06/05/25 11:00 06/05/25 11:00 06/05/25 11:00 06/05/25 11:00
Vital Signs
Temp Pulse Resp BP Pulse Ox
98.6 F 72 12 125/78 99
06/05/25 11:00 06/05/25 11:00 06/05/25 11:00 06/05/25 11:00 06/05/25 11:00
Intake & Output
06/03/25 06/04/25 06/05/25 06/06/25
06:59 06:59 06:59 06:59
Intake Total 780 / 780 900 / 900
Output Total 200 / 200
Balance 580 / 580 900 / 900
Physical Exam
Physical Exam
GEN: NAD, AAO x 3
HEENT: EOMI
LUNGS: RA. No audible wheeze
CV: SR on telemetry
NEURO: No focal or lateralizing weakness
--- NOTE | 2025-06-05 13:58 | ITS.CL.IMPLP ---
Charger Operator Helper - Implant Loop
Implant Loop
Procedure Report:
Primary Care: KIM Santana
Primary Middle School Guidance Counselor: Dr. Victor M Roy
Procedure Date: 06/05/2025
Procedure: Placement of a loop recorder.
History/Indication:
1. See office H&P for complete history.
2. Patient is a pleasant 54-year-old male with a past medical history significant for hypertension, hyperlipidemia, alcohol use, anxiety/panic, family history of CVA TIA with prior TIA 2021 who presented due to aphasia concern for TIA. Due to
recurrent TIA, patient undergo ILR implant for longitudinal surveillance for possible arrhythmic etiology for his neurologic symptoms.
Method:
After informed consent was obtained, the patient was brought to the EP laboratory holding area in a fasting, non-sedated state. Peripheral access was established. The left chest was prepared and draped in a sterile fashion. A 'time out' was
called. Local anesthesia was injected in the subcutaneous tissue. The ILR was injected under the skin. Topical skin adhesive was applied. Following the procedure, the patient was taken to the recovery area in stable condition. No complications
were noted.
Device Data:
[employer]tronic; Model# LINQII; Serial# [id number]
Conclusion:
Successful placement of a loop recorder.
Recommendations:
1. Follow-up will be arranged in the [facility] in 7-10 days for wound check.
2. Routine ILR care.
Eddie Knox DO, [facility]
Clinical Cardiac Tool Marker
cc: Camryn Barrientos; Dr Victor M Roy
[2025-06-05 14:20] VITALS: BP 113/67
[2025-06-05 15:20] VITALS: BP 116/70
--- NOTE | 2025-06-05 15:28 | W.PN.UPDATE ---
Update Note
Progress Note Update
54-year-old man with aphasia/dysphagia
Head CT-CT evidence-no acute intracranial hemorrhage. Low-lying cerebellar tonsils.
MRI-no evidence of acute infarct or intracranial hemorrhage. Low-lying cerebellar tonsils. Severe right maxillary sinusitis.
EKG-sinus rhythm. Nonspecific ST-T changes
Patient is awake and alert oriented
Cardiovascular system S1-S2 appreciated
Chest clear to auscultation
Abdomen soft nontender
I could not elicit a facial droop, normal motor exam, sensory exam
No tenderness in the sinuses
# Aphasia/dysphagia
Patient had alcohol from 4 PM to 8 PM and then this symptoms happened at around 10 PM.
MRI negative for strokes
Neurology evaluation noted. Feels that this could have been a stroke which is not seen on MRI, he is at increased risk given alcohol use.
Alcohol level was 192 ,4 hours after his last reported drink-could have been also the recent
Continue aspirin which he was on prior to coming in. Plavix added
S/P VENANCIO and also loop monitor placement today on 06/05/2025. VENANCIO was negative
# Severe sinusitis seen on imaging-patient does not have any clinical symptoms therefore no treatment. Advised patient to report to his PCP if he does develop any symptoms and the near future.
Patient reported symptoms of sinusitis this morning including pain and discharge therefore started on antibiotics. Continue for 5 more days at discharge
# Anion gap metabolic acidosis likely secondary to alcohol, repeat better
# Hypertension-continue labetalol, lisinopril, Aldactone
# Hyperlipidemia-on Repatha
# Alcohol use disorder-at least 4 days a week
Patient needs to cut back on alcohol was discussed with him
Continue MSAS, with benzo for withdrawal symptoms and thiamine
# Diverticulosis
# Fatty liver
# DVT prophylaxis-SCDs
# Full code
D/W RN
Discussed with cardiology-okay for discharge
More than 30 minutes spent in discharge including
Final examination of the patient
Summarizing hospital stay
Instructions for continuing care to all relevant caregivers
Preparation of discharge records, prescriptions, and referral forms
Total time spent (in minutes): more than 30 min
--- NOTE | 2025-06-05 16:31 | CM ---
MD entered order for discharge.
Pt remains observation.
Offered VN he declined need.
His Rory will drive him home at discharge
PLAN Home no needs
--- NOTE | 2025-06-06 15:35 | W.DCSUMMARY ---
Discharge Summary
Discharge Data
Date of Admission: 06/03/25
Date of Discharge: 06/06/25
Total time spent discharging patient (in min): 35
-
Pending Results: Yes
Hospital Course
Mr. Easley came to [facility] ED for transient aphasia.� He felt well earlier that evening, was listening to music and drinking, took a nap, and woke up 9:30-10 pm. At time that, his partner said his speech did not make sense.� He was
speaking about mushrooms or bugs / beetles or something similar and seemed confused according to his . He was able to use normal words, but content and syntax were off. Patient endorses the episode lasted approximately 10 minutes and he came
to the ED immediately after. He developed a L sided headache after arrival to the ED - which resolved spontaneously, as did his aphasia. His blood alcohol level was 192. He received a Plavix load and will be on Plavix for 21 days.�
Patient had a similar episode in 2021.� He was seen in the ED by Neurology and diagnosed with suspected TIA.� He was markedly hypertensive during that visit (but not this time). He was discharged on aspirin and labetalol.�
Transthoracic echo was negative for thrombus. Normal LV function. Mild LVH. EF 56% by visual estimation. Neurology recommended transesophageal ultrasound and carotid ultrasound. Cardiology recommended implanting a Linq monitor, which patient was
agreeable to.�
Discharge Plan
-
Patient Disposition: Home (Routine Discharge)
Discharge Diagnosis/Procedures: Speech abnormality
TIA
Alcohol use disorder
Hypertension
High cholesterol
Condition: Good
Diet: As tolerated
Activity: As tolerated
Driving Restrictions: As prior to admission
Blood Work: Thyroid function test in 6 weeks
Activity Restrictions/Additional Instructions:
cut back on alcohol and Stop alcohol use at home
If you develop any symptoms of sinusitis as discussed call your PCP
Referrals:
Camryn Barrientos PA [Family Provider, Family Practice] - in less than 1 week
Jimbo Roy MD [Active, Cardiology] - in one week
Referral Note: Linq wound check
Prescriptions:
New
pantoprazole 40 mg Tablet,Delayed Release (Dr/Ec)
40 mg PO DAILY 21 Days Qty: 21 0RF
amoxicillin-pot clavulanate 875-125 mg Tablet
1 tab PO Q12 5 Days Qty: 10 0RF
cetirizine 10 mg Tablet
10 mg PO DAILY Qty: 30 0RF
clopidogrel 75 mg Tablet
75 mg PO DAILY 18 Days Qty: 18 0RF
Continued
lisinopril 20 mg Tablet
20 mg PO BID
spironolactone [Aldactone] 25 mg Tablet
12.5 mg PO DAILY
aspirin 81 mg Tablet
81 mg PO DAILY
sertraline 25 mg Tablet
25 mg PO DAILY
Repatha SureClick 140 mg/mL Pen Injector
140 mg SC Q2W
labetalol 100 mg tablet
50 mg PO BID
Discharge Orders:
Discharge Patient (As Directed); Ordered 06/05/25
Ordered By: Pedro Pablo Blanchrad
Discharge Date and Time
Discharge Date/Time: 06/05/25 16:51
Print Language: ROMANIAN
== END 2025-06-05 16:51 | disposition home or self-care (01) ==
LOC: 4 EAST ACU 05:05
PROVIDERS: Internal Medicine Cardiovascular Disease; Nurse Practitioner Family; ADMITTING PHYSICIAN Hospitalist; ATTENDING PHYSICIAN Hospitalist; CONSULT PHYSICIAN Psychiatry & Neurology Clinical Neurophysiology; EMERGENCY PHYSICIAN Student in an Organized Health Care Education/Training Program; FAMILY PHYSICIAN Physician Assistant Medical; OTHER PHYSICIAN Internal Medicine Cardiovascular Disease
PROC: B24BZZ4 Ultrasonography of Heart with Aorta, Transesophageal (ICD-10-PCS; 2025-06-05)
PROC: 0JH632Z Insertion of Monitoring Device into Chest Subcutaneous Tissue and Fascia, Percutaneous Approach (ICD-10-PCS; 2025-06-05)
DX: G45.9 Transient cerebral ischemic attack, unspecified (principal); R47.01 Aphasia; R13.10 Dysphagia, unspecified; F10.10 Alcohol abuse, uncomplicated; I10 Essential (primary) hypertension; E78.00 Pure hypercholesterolemia, unspecified; F41.9 Anxiety disorder, unspecified; K58.9 Irritable bowel syndrome, unspecified; E87.20 Acidosis, unspecified; J32.0 Chronic maxillary sinusitis; K76.0 Fatty (change of) liver, not elsewhere classified; Y90.6 Blood alcohol level of 120-199 mg/100 ml; Z86.73 Personal history of transient ischemic attack (TIA), and cerebral infarction without residual deficits; Z79.899 Other long term (current) drug therapy; Z79.82 Long term (current) use of aspirin; Z82.3 Family history of stroke
CPT/HCPCS: 33285; 70450; 70551; 80048; 80053; 80061; 80306; 82077; 83036; 83605; 83735; 84439; 84443; 84484; 85025; 85027; 85610; 85730; 93005; 93306; 93312; 93320; 93325; 93880; 99285; C1764; G0378